=== PATIENT | male | born 1960 | race Asian ===

== ENCOUNTER 2019-06-17 09:53 | Outpatient (CLI) | payer BC ==
--- NOTE | 2019-06-17 11:37 | CT ---
CT CHEST WITHOUT IV CONTRAST: Axial tomograms were obtained with multiplanar reconstruction. A low-dose screening protocol was fol lowed. INDICATION: Nicotine dependence. COMPARISON: There are no prior chest films and no prior chest CTs available for comparison. FINDINGS: There is an irregularly shaped mass in the left upper lobe which measures 3.0 cm AP dimension in the axial plane. There is surrounding ground-glass opacity and air bronchograms within this mass. There is a second mass in the left infrahilar region measuring 2.7 cm AP dimension in the axial plane . There is a large pleural-based mass in the left lower lobe posterolaterally measuring 6.2 cm AP dimen harvey in the axial plane. Mild left pleural thickening. No effusion. The right lung appears clear. There is mediastinal adenopathy. AP window nodes are seen. A paratracheal node measures up to 2 cm. There are abnormal carinal lymph nodes. Images through the upper abdomen are unremarkable. Osseous structures are unremarkable. IMPRESSION: 1. There are 3 mass lesions seen in the left lung. The left upper lobe mass has air bronchograms an d surrounding haziness which could represent secondary infectious/pneumonia associated with an underl swetha mass lesion. 2. There is a circumscribed infrahilar mass on the left and there is a large pleural-based mass in t he left lower lobe as described above. Findings are category 4B, suspicious for malignancy. CT chest with contrast is recommended for furth er characterization. Consider PET CT for further evaluation of apparent malignancy. CODE T POS: LILIANE
== END 2019-06-17 09:54 | disposition home or self-care (01) ==
LOC: CT 09:53
PROVIDERS: ATTEND Family Medicine
DX: Z12.2 Encounter for screening for malignant neoplasm of respiratory organs (principal); F17.210 Nicotine dependence, cigarettes, uncomplicated; R91.8 Other nonspecific abnormal finding of lung field
CPT/HCPCS: G0297

== ENCOUNTER 2019-07-08 07:30 | Outpatient (CLI) | payer BC ==
--- NOTE | 2019-07-08 11:03 | PET ---
PET CT: HISTORY: A 59-year-old male with lung mass on low-dose CT scan of the chest of 06/17/2019. TECHNIQUE: PET scanning with CT attenuation correction was performed from the base of the brain through the prox imal thighs following the intravenous administration of 13 mCi [id number] in the left ant ecubital fossa. COMPARISON: None. CORRELATION: LDCT of chest dated 06/17/2019. FINDINGS: Multiple hypermetabolic lymph nodes are seen including the right supraclavicular (SUV 5.5), right pre vascular (SUV 4.6), left prevascular (SUV 6.2), right paratracheal (SUV 7), aortopulmonic (SUV 6), marion bcarinal (SUV 9), left hilar (SUV 8), and left infrahilar (SUV 8) lymph nodes. There are 3 hypermetabolic masses with SUVs of 4.3 in the upper lobe, 8.6 in the 2.7 cm mass in the l eft lower lobe, and 10.5 in the 6.2 cm peripheral mass in the left lower lobe. A hypermetabolic focus in the left lobe of the liver has an SUV of 5.8. No hypermetabolic right lung nodules, right liver lobe, adrenal, or skeletal lesions are seen. There is physiologic activity in the GI/ tracts, heart, and visualized portions of the brain. The CT scan used for attenuation correction demonstrates no evidence of pleural effusions or ascites. IMPRESSION: Findings are consistent with left lung malignancy and metastatic disease. POS: LILIANE
== END 2019-07-08 07:31 | disposition home or self-care (01) ==
LOC: PET 07:30
PROVIDERS: ATTEND Family Medicine
DX: R91.8 Other nonspecific abnormal finding of lung field (principal)
CPT/HCPCS: 78815; A9552

== ENCOUNTER → 2019-07-17 | Day surgery (SDC) | payer BC ==
[2019-07-16 13:12] VITALS: BMI 32.2
[2019-07-17 09:01] LABS: PTT 29.6 SEC (22.9-36.1); Prothrombin Time 12.8 SEC (12.0-14.7)
[2019-07-17 10:02] VITALS: BP 126/75; TEMP 99
--- NOTE | 2019-07-17 11:05 | CT ---
PROCEDURE: CT-guided percutaneous biopsy left lower lobe mass PROVIDED CLINICAL HISTORY: 59-year-old male patient with nicotine dependence and recent imaging demonstrating 3 masses in the le ft lung largest which is pleural-based in the left lower lobe. Biopsy was requested. COMPARISON: PET/CT exam on 07/08/2019 TECHNIQUE: The procedure including the risks and complications were explained to the patient, and informed conse nt was obtained. The patient was placed on the CT scan table in the prone position. Grid localizer was placed overlying the posterolateral right lower chest. Limited noncontrasted CT scan was obtained . An area was marked and then meticulously prepped and draped in the usual sterile fashion. The skin and subcutaneous tissues were infiltrated with buffered 1% lidocaine for local anesthesia at the intended puncture site. A small skin incision was made. A 17-gauge guide needle was advanced followed by axial noncontrasted CT images. This was repeated until the needle was positioned within t he peripheral aspect of the right lower lobe mass. A total of four 18-gauge core needle biopsy specimens were obtained utilizing coaxial technique. Pathologist was available for evaluation of the specimens, and adequate tissue was obtained. No additional biopsy specimens were requested. A follow-up noncontrasted CT scan was obtained which demonstrated no evidence of a pneumothorax or pl eural fluid or findings to suggest hematoma at site of biopsy. The needle was removed, and hemostasis was achieved with direct pressure. The patient tolerated the procedure well and without im mediate complication. Patient was transported to radiology nurses holding area for further monitoring prior to discharge. Follow-up chest x-rays are scheduled. IMPRESSION: Technically successful CT-guided percutaneous biopsy of a large pleural-based left lower lobe mass.
--- NOTE | 2019-07-17 11:12 | RAD ---
EXAM: XR Chest Insp/Exp PROVIDED CLINICAL HISTORY: Post biopsy left lower lobe mass. COMPARISON: Chest x-ray on 09/20/[address] thorax on 06/17/2019 FINDINGS: Left upper lobe parenchymal density which has masslike appearance as well as left lower lobe and left hilar masses are seen and better seen on CT thorax. The right lung is clear. Blunting of the left lateral costophrenic angle is present, but this was seen on the hand funnel coater view of the chest and likely re lated to pleural thickening as a left lower lobe mass abuts the posterolateral left costophrenic angle. No pneumothorax or definite pleural effusion is present. There is prominence of the right para mediastinal structures, but this was present on prior hand funnel coater view of the CT thorax and shown to represent vascular structures and mildly enlarged lymph nodes. Cardiac silhouette and pulmonary vascu lature are within normal limits. Vascular calcifications are seen in the aortic arch. Osseous structures have a normal appearance. IMPRESSION: 1. Masses left lung better seen on prior CT thorax. 2. No evidence of a pneumothorax.
--- NOTE | 2019-07-17 13:03 | RAD ---
Chest 2 views inspiratory expiratory HISTORY: Lung mass with biopsy. FINDINGS: Correlated with earlier images on the same date. Left lung is well-inflated. Masses are similar in appearance to the prior study. Mediastinum is midline. Right lung clear. IMPRESSION : No evidence of postbiopsy pneumothorax.
== END ==
LOC: CT 08:32
PROVIDERS: ATTEND Internal Medicine Critical Care Medicine
PROC: BB28ZZZ Computerized Tomography (CT Scan) of Left Tracheobronchial Tree (ICD-10-PCS; principal; 2019-07-17)
PROC: 0BBJ3ZX Excision of Left Lower Lung Lobe, Percutaneous Approach, Diagnostic (ICD-10-PCS; principal; 2019-07-17)
DX: C34.32 Malignant neoplasm of lower lobe, left bronchus or lung (principal); I10 Essential (primary) hypertension; Z79.82 Long term (current) use of aspirin; Z79.899 Other long term (current) drug therapy; Z87.891 Personal history of nicotine dependence
CPT/HCPCS: 32405; 36415; 71045; 77002; 85610; 85730; 88305; 88333; 88334; 88341; 88342; J2250; J3010

== ENCOUNTER 2019-07-19 08:32 | Emergency (ER) | payer BC ==
[~2019-07-19 08:32] MED LIST: Fentanyl 100 MCG/2 ML VIAL ONE; Midazolam HCl 2 mg/2 ml Vial ONE; Sodium Bicarbonate 2.5 MEQ/5 ML VIAL ONE
== END 2019-07-19 08:36 | disposition expired ==
LOC: ERS 08:32
DX: I46.9 Cardiac arrest, cause unspecified (principal)
CPT/HCPCS: 99285